=== PATIENT | male | born 1970 | race Caucasian/White ===

== ENCOUNTER 2018-10-04 09:42 | Emergency (ER) | payer OTHER ==
[2018-10-04 09:55] VITALS: RESP 18; TEMP 98.2
[2018-10-04] MEDS ORDERED: SODIUM CHLORIDE 0.9% 1,000 ML IV STA (10:20)
[2018-10-04] MEDS ORDERED: LIDOCAINE 1% INJ 10MG/ML (20 ML MDV) SQ ONE (10:21)
[2018-10-04 10:55] LABS: Basophils # (A) 0.1 k/uL (0-0.2); Basophils % (A) 0 %; Eosinophils # (A) 0.1 k/uL (0-0.7); Eosinophils % (A) 1 %; HCT 43.5 % (39.0-53.0); HGB 14.6 gm/dL (13.0-17.5); Lymphocytes # (A) 1.4 k/uL (1.0-4.8); Lymphocytes % (A) 10 %; MCH 31.4 pg (25.0-35.0); MCHC 33.7 g/dL (31.0-37.0); MCV 93.2 fL (80.0-100.0); Monocytes # (A) 0.5 k/uL (0-1.0); Monocytes % (A) 3 %; Neutrophils # (A) 11.2 k/uL (1.3-7.7); Neutrophils % (A) 84 %; Platelet Count 304 k/uL (150-450); RBC 4.66 m/uL (4.30-5.90); RDW 13.8 % (11.5-15.5); WBC 13.4 k/uL (3.8-10.6)
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
[2018-10-04 11:05] LABS: ALT 26 U/L (21-72); AST 32 U/L (17-59); African American GFR (CKD) >90 (>60 ml/min/1.73 sqM); Albumin 4.2 g/dL (3.5-5.0); Alkaline Phosphatase 57 U/L (38-126); Anion Gap 11 mmol/L; Blood Urea Nitrogen 13 mg/dL (9-20); Calcium 8.5 mg/dL (8.4-10.2); Carbon Dioxide 20 mmol/L (22-30); Chloride 111 mmol/L (98-107); Glucose 105 mg/dL (74-99); Potassium 4.5 mmol/L (3.5-5.1); Sodium 142 mmol/L (137-145); Total Bilirubin 0.3 mg/dL (0.2-1.3); Total Protein 6.9 g/dL (6.3-8.2)
[2018-10-04 11:30] VITALS: BP 145/83; PULSE 87
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
[2018-10-04] MEDS ORDERED: ACETAMINOPHEN TAB 500 MG TAB PO STA (11:39)
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
[2018-10-04] MEDS ORDERED: KETOROLAC 30 MG/ML 1 ML VIAL IVP STA (12:05)
== END 2018-10-04 13:46 | disposition home or self-care (01) ==
LOC: EC 09:42
DX: S02.2XXA Fracture of nasal bones, initial encounter for closed fracture (principal); S01.511A Laceration without foreign body of lip, initial encounter; M54.2 Cervicalgia; R10.9 Unspecified abdominal pain; K08.409 Partial loss of teeth, unspecified cause, unspecified class; F17.200 Nicotine dependence, unspecified, uncomplicated; Y09 Assault by unspecified means; Y93.89 Activity, other specified; Y92.009 Unspecified place in unspecified non-institutional (private) residence as the place of occurrence of the external cause
CPT/HCPCS: 99285; 12011; 96374; 96361; 36415; 80053; 83605; 85025; 71111; 72125; 70486; 70450; 74176; J2001; J1885

== ENCOUNTER 2020-08-28 22:03 | Emergency (ER) | payer OTHER ==
[2020-08-28 22:17] VITALS: TEMP 98
[2020-08-28] MEDS ORDERED: SODIUM CHLORIDE 0.9% 1,000 ML IV STA (22:20)
--- NOTE | 2020-08-28 22:26 | ED ---
Arrhythmia/Palpitations HPI - General Chief Complaint: Arrhythmia/Palpitations Stated Complaint: Fast Heart Beat, Loss vision Time Seen by Provider: 08/28/20 22:19 Source: patient Mode of arrival: wheelchair Limitations: no limitations - Related Data Allergies Allergy/AdvReac Type Severity Reaction Status Date / Time No Known Allergies Allergy Verified 08/28/20 22:17 Review of Systems ROS Statement: Those systems with pertinent positive or pertinent negative responses have been documented in the HPI. ROS Other: All systems not noted in ROS Statement are negative. Past Medical History Past Medical History: No Reported History History of Any Multi-Drug Resistant Organisms: None Reported Past Surgical History: No Surgical Hx Reported Past Psychological History: No Psychological Hx Reported Smoking Status: Current every day smoker Past Alcohol Use History: Occasional Past Drug Use History: Marijuana General Exam Limitations: no limitations Course Vital Signs 08/28/20 22:14 Temperature 98.0 F Pulse Rate 73 Respiratory 20 Rate Blood Pressure 143/82 O2 Sat by Pulse 97 Oximetry EKG Findings - EKG Comments: EKG Findings:: EKG is sinus rhythm 81 UT 170 QRS 90 QTC 448 Medical Decision Making - Lab Data Result diagrams: 08/28/20 22:44 08/28/20 22:44 Lab Results 08/28/20 08/28/20 08/28/20 Range/Units 22:44 22:44 22:44 WBC 9.3 (3.8-10.6) k/uL RBC 4.62 (4.30-5.90) m/uL Hgb 14.9 (13.0-17.5) gm/dL Hct 43.5 (39.0-53.0) % MCV 94.1 (80.0-100.0) fL MCH 32.2 (25.0-35.0) pg MCHC 34.2 (31.0-37.0) g/dL RDW 12.0 (11.5-15.5) % Plt Count 289 (150-450) k/uL MPV 7.2 Neutrophils % 57 % Lymphocytes % 34 % Monocytes % 4 % Eosinophils % 3 % Basophils % 1 % Neutrophils # 5.3 (1.3-7.7) k/uL Lymphocytes # 3.1 (1.0-4.8) k/uL Monocytes # 0.4 (0-1.0) k/uL Eosinophils # 0.3 (0-0.7) k/uL Basophils # 0.1 (0-0.2) k/uL PT (9.0-12.0) sec INR (<1.2) APTT (22.0-30.0) sec Sodium 135 L (137-145) mmol/L Potassium 4.1 (3.5-5.1) mmol/L Chloride 104 (98-107) mmol/L Carbon Dioxide 24 (22-30) mmol/L Anion Gap 7 mmol/L BUN 10 (9-20) mg/dL Creatinine 0.95 (0.66-1.25) mg/dL Est GFR (CKD-EPI)AfAm >90 (>60 ml/min/1.73 sqM) Est GFR (CKD-EPI)NonAf >90 (>60 ml/min/1.73 sqM) Glucose 98 (74-99) mg/dL Plasma Lactic Acid Vinod 1.1 (0.7-2.0) mmol/L Calcium 9.1 (8.4-10.2) mg/dL Phosphorus 4.2 (2.5-4.5) mg/dL Magnesium 1.9 (1.6-2.3) mg/dL Total Bilirubin 0.4 (0.2-1.3) mg/dL AST 36 (17-59) U/L ALT 26 (4-49) U/L Alkaline Phosphatase 67 (38-126) U/L Creatine Kinase 156 (55-170) U/L Troponin I (0.000-0.034) ng/mL NT-Pro-B Natriuret Pep pg/mL Total Protein 7.2 (6.3-8.2) g/dL Albumin 4.2 (3.5-5.0) g/dL TSH 2.300 (0.465-4.680) mIU/L 08/28/20 08/28/20 08/28/20 Range/Units 22:44 22:44 23:12 WBC (3.8-10.6) k/uL RBC (4.30-5.90) m/uL Hgb (13.0-17.5) gm/dL Hct (39.0-53.0) % MCV (80.0-100.0) fL MCH (25.0-35.0) pg MCHC (31.0-37.0) g/dL RDW (11.5-15.5) % Plt Count (150-450) k/uL MPV Neutrophils % % Lymphocytes % % Monocytes % % Eosinophils % % Basophils % % Neutrophils # (1.3-7.7) k/uL Lymphocytes # (1.0-4.8) k/uL Monocytes # (0-1.0) k/uL Eosinophils # (0-0.7) k/uL Basophils # (0-0.2) k/uL PT 10.7 (9.0-12.0) sec INR 1.0 (<1.2) APTT 25.8 (22.0-30.0) sec Sodium (137-145) mmol/L Potassium (3.5-5.1) mmol/L Chloride (98-107) mmol/L Carbon Dioxide (22-30) mmol/L Anion Gap mmol/L BUN (9-20) mg/dL Creatinine (0.66-1.25) mg/dL Est GFR (CKD-EPI)AfAm (>60 ml/min/1.73 sqM) Est GFR (CKD-EPI)NonAf (>60 ml/min/1.73 sqM) Glucose (74-99) mg/dL Plasma Lactic Acid Vinod (0.7-2.0) mmol/L Calcium (8.4-10.2) mg/dL Phosphorus (2.5-4.5) mg/dL Magnesium (1.6-2.3) mg/dL Total Bilirubin (0.2-1.3) mg/dL AST (17-59) U/L ALT (4-49) U/L Alkaline Phosphatase (38-126) U/L Creatine Kinase (55-170) U/L Troponin I <0.012 (0.000-0.034) ng/mL NT-Pro-B Natriuret Pep 165 pg/mL Total Protein (6.3-8.2) g/dL Albumin (3.5-5.0) g/dL TSH (0.465-4.680) mIU/L Disposition Clinical Impression: Ventricular premature beats, Palpitations, Vision changes Disposition: HOME SELF-CARE Condition: Good Instructions (If sedation given, give patient instructions): Heart Palpitations (ED), Heart Palpitations (DC) Is patient prescribed a controlled substance at d/c from ED?: No Referrals: None,Stated [Primary Care Provider] - 1-2 days
[2020-08-28 22:56] LABS: Basophils # (A) 0.1 k/uL (0-0.2); Basophils % (A) 1 %; Eosinophils # (A) 0.3 k/uL (0-0.7); Eosinophils % (A) 3 %; HCT 43.5 % (39.0-53.0); HGB 14.9 gm/dL (13.0-17.5); Lymphocytes # (A) 3.1 k/uL (1.0-4.8); Lymphocytes % (A) 34 %; MCH 32.2 pg (25.0-35.0); MCHC 34.2 g/dL (31.0-37.0); MCV 94.1 fL (80.0-100.0); Mean Platelet Volume 7.2; Monocytes # (A) 0.4 k/uL (0-1.0); Monocytes % (A) 4 %; Neutrophils # (A) 5.3 k/uL (1.3-7.7); Neutrophils % (A) 57 %; Platelet Count 289 k/uL (150-450); RBC 4.62 m/uL (4.30-5.90); WBC 9.3 k/uL (3.8-10.6)
[2020-08-28 23:07] LABS: ALT 26 U/L (4-49); AST 36 U/L (17-59); African American GFR (CKD) >90 (>60 ml/min/1.73 sqM); Albumin 4.2 g/dL (3.5-5.0); Alkaline Phosphatase 67 U/L (38-126); Anion Gap 7 mmol/L; Blood Urea Nitrogen 10 mg/dL (9-20); Calcium 9.1 mg/dL (8.4-10.2); Carbon Dioxide 24 mmol/L (22-30); Chloride 104 mmol/L (98-107); Creatine Kinase 156 U/L (55-170); Glucose 98 mg/dL (74-99); Magnesium 1.9 mg/dL (1.6-2.3); Non-African American GFR(CKD) >90 (>60 ml/min/1.73 sqM); Phosphorus 4.2 mg/dL (2.5-4.5); Potassium 4.1 mmol/L (3.5-5.1); Sodium 135 mmol/L (137-145); Total Bilirubin 0.4 mg/dL (0.2-1.3); Total Protein 7.2 g/dL (6.3-8.2)
[2020-08-28 23:36] LABS: Partial Thromboplastin Time 25.8 sec (22.0-30.0); Prothrombin Time 10.7 sec (9.0-12.0)
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
[2020-08-29 01:16] VITALS: BP 120/75; PULSE 62; RESP 18
== END 2020-08-29 01:16 | disposition home or self-care (01) ==
LOC: EC 22:03
DX: I49.3 Ventricular premature depolarization (principal); H53.9 Unspecified visual disturbance; F17.200 Nicotine dependence, unspecified, uncomplicated
CPT/HCPCS: 70450; 80053; 82550; 83605; 83735; 83880; 84100; 84443; 84484; 85025; 85610; 85730; 93005; 96360; 96361; 99285

== ENCOUNTER 2021-05-09 22:02 | Observation (INO) | payer OTHER ==
[2021-05-09 23:45] LABS: Basophils # (A) 0.1 k/uL (0-0.2); Basophils % (A) 1 %; Eosinophils # (A) 0.2 k/uL (0-0.7); Eosinophils % (A) 2 %; HCT 47.2 % (39.0-53.0); HGB 15.5 gm/dL (13.0-17.5); Lymphocytes # (A) 3.5 k/uL (1.0-4.8); Lymphocytes % (A) 33 %; MCH 32.2 pg (25.0-35.0); MCV 97.6 fL (80.0-100.0); Mean Platelet Volume 7.3; Monocytes # (A) 0.5 k/uL (0-1.0); Monocytes % (A) 5 %; Neutrophils # (A) 6.1 k/uL (1.3-7.7); Neutrophils % (A) 58 %; Platelet Count 309 k/uL (150-450); RBC 4.83 m/uL (4.30-5.90); WBC 10.6 k/uL (3.8-10.6)
--- NOTE | 2021-05-09 23:45 | XR ---
EXAMINATION TYPE: XR chest 2V DATE OF EXAM: 05/09/2021 COMPARISON: 10/04/2018 HISTORY: Chest pain TECHNIQUE: FINDINGS: Heart and mediastinum are normal. Lungs are clear. Diaphragm is normal. There are chest seb ds. Bony thorax is intact. IMPRESSION: Normal chest. No change.
[2021-05-09 23:54] LABS: ALT 23 U/L (4-49); AST 26 U/L (17-59); African American GFR (CKD) >90 (>60 ml/min/1.73 sqM); Alkaline Phosphatase 63 U/L (38-126); Anion Gap 10 mmol/L; Blood Urea Nitrogen 12 mg/dL (9-20); Calcium 9.4 mg/dL (8.4-10.2); Carbon Dioxide 21 mmol/L (22-30); Chloride 107 mmol/L (98-107); Glucose 103 mg/dL (74-99); Magnesium 2.1 mg/dL (1.6-2.3); Non-African American GFR(CKD) 89 (>60 ml/min/1.73 sqM); Potassium 4.4 mmol/L (3.5-5.1); Sodium 138 mmol/L (137-145); Total Bilirubin 0.8 mg/dL (0.2-1.3); Total Protein 7.2 g/dL (6.3-8.2)
[2021-05-10 00:02] LABS: INR 1.1 (<1.2); Partial Thromboplastin Time 26.7 sec (22.0-30.0); Prothrombin Time 11.3 sec (9.0-12.0)
--- NOTE | 2021-05-10 00:41 | ED ---
Chest Pain HPI - General Chief Complaint: Chest Pain Stated Complaint: Chest Pain Time Seen by Provider: 05/09/21 23:13 Source: patient Mode of arrival: ambulatory Limitations: no limitations - History of Present Illness Initial Comments: 50-year-old male with no reported medical history presents emergency department with reported chest pain and palpitations. States that her symptoms started yesterday. Denies any provocative factors. No previous history of cardiac disease. Reports a tightness across his chest which waxes and wanes in nature. Did not take any medications at home for her symptoms. Denies previous history of cardiac or pulmonary disease. Does have a strong family history. He is a daily smoker. Reports to drinking up to a 12 pack of beer, several times per week. Patient does not follow with a primary care doctor. He denies ripping or tearing sensation to his back. No shortness of breath, fevers or cough. No lower extremity swelling. No previous history of cardiac workup. No other alleviating, precipitating or modifying factors - Related Data Home Medications Medication Instructions Recorded Confirmed No Known Home Medications 05/09/21 05/09/21 Allergies Allergy/AdvReac Type Severity Reaction Status Date / Time No Known Allergies Allergy Verified 05/09/21 23:44 Review of Systems ROS Statement: Those systems with pertinent positive or pertinent negative responses have been documented in the HPI. ROS Other: All systems not noted in ROS Statement are negative. EKG Findings - EKG Comments: EKG Findings:: EKG demonstrates sinus rhythm with frequent PACs. Rate of 71. IN interval 181. QRS 92. QTC 400. No acute ST segment elevations or depressions Past Medical History Past Medical History: No Reported History History of Any Multi-Drug Resistant Organisms: None Reported Past Surgical History: No Surgical Hx Reported Past Psychological History: No Psychological Hx Reported Smoking Status: Current every day smoker Past Alcohol Use History: Occasional Past Drug Use History: Marijuana General Exam Limitations: no limitations Course Vital Signs 05/09/21 05/10/21 05/10/21 22:29 00:20 01:43 Temperature 98.1 F Pulse Rate 52 L 69 73 Respiratory 18 20 20 Rate Blood Pressure 129/62 117/59 133/78 O2 Sat by Pulse 97 98 97 Oximetry Chest Pain MDM - MDM Upon arrival patient was placed into room 28. Thorough history and physical exam was performed. IV access established liver traces are conducted. Old EKG was performed which demonstrates frequent PVCs, bigeminy rhythm. Old EKG to compare to. Patient acutely symptomatic at this time. First troponin is negative however did recommend admission for cardiac monitoring and cardiology consultation patient did agree to. Spoke with Dr. Gutierrez who agreed to admit the patient. Patient admitted in stable condition Disposition Clinical Impression: Chest pain Disposition: ADMITTED IP TO THIS HOSP Condition: Stable Is patient prescribed a controlled substance at d/c from ED?: No Decision to Admit Reason: Admit from EC Decision Date: 05/10/21 Decision Time: 01:17
[2021-05-10] MEDS ORDERED: NALOXONE 0.4 MG/ML 1 ML VIAL IV PRN (01:18)
--- NOTE | 2021-05-10 05:37 | P.HPIM ---
History of Present Illness H&P Date: 05/10/21 Chief Complaint: palpitations , chest tightness 50 year old male with no significant past medical history He presented today for palpitations, and off/on chest tightness. he felt having irregular heart beats for two days now, however denies affecting his activity level. he works physical job, and denies any dyspnea or chest pain limiting his activity. he believes he is in good health, however, he does not see a doctor. he denies any cardiac history . however today , as he was laying down to sleep , he felt sharp chest pain left sided for which he decided that he needs to come in for evaluation , no associated dizziness, shortness of breath , leg edema, profuse sweating or palpitations. he felt little nausea without vomiting. otherwise , denies any recent travel, history of blood clots, denies taking any OTC meds except for tylenol , he is not on any meds. he denies drugs , except for occasional marijuana, he denies regular heavy alcohol consumption. he does admit to heavy smoking initial workup in the ED was unremarkable EKG showed frequent PVCs in bigeminy pattern Review of Systems Pertinent positives as noted in HPI. All other systems were reviewed and are negative Past Medical History Past Medical History: No Reported History History of Any Multi-Drug Resistant Organisms: None Reported Past Surgical History: No Surgical Hx Reported Past Psychological History: No Psychological Hx Reported Smoking Status: Current every day smoker Past Alcohol Use History: Occasional Past Drug Use History: Marijuana - Past Family History family Family Medical History: Coronary Artery Disease (CAD) Medications and Allergies Home Medications Medication Instructions Recorded Confirmed Type No Known Home Medications 05/09/21 05/09/21 History Allergies Allergy/AdvReac Type Severity Reaction Status Date / Time No Known Allergies Allergy Verified 05/09/21 23:44 Physical Exam Vitals: Vital Signs Temp Pulse Resp BP Pulse Ox 05/10/21 01:43 73 20 133/78 97 05/10/21 00:20 69 20 117/59 98 05/09/21 22:29 98.1 F 52 L 18 129/62 97 Intake and Output 05/09/21 05/09/21 05/10/21 14:59 22:59 06:59 Other: Weight 95.254 kg Constitutional: No acute distress, conversant, pleasant Eyes: Anicteric sclerae, moist conjunctiva, Pupils equal round reactive to light ENMT: NC/AT Oropharynx clear, no erythema, or exudates Neck: Supple, FROM, no masses, or JVD No carotid bruits No thyromegaly Lungs: Clear to auscultation Clear to percussion Normal respiratory effort, no accessory muscle use Cardiovascular: Heart irregular in rate and rhythm, No murmurs, gallops, or rubs No peripheral edema Abdominal: Soft Nontender, no guarding, rebound or rigidity Abdomen moving with respiration Normoactive bowel sounds No hepatomegaly, No splenomegaly No palpable mass No abdominal wall hernia noted Skin: Normal temperature, tone, texture, turgor No induration No subcutaneous nodules No rash, lesions No ulcers Extremities: No digital cyanosis No clubbing Pedal pulses intact and symmetrical Radial pulses intact and symmetrical No calf tenderness Psychiatric: Alert and oriented to person, place and time Appropriate affect fair judgement Neuro Muscles Strength 5/5 in all 4 extremities Sensation to light touch grossly present throughout Cranial nerves II-XII grossly intact No focal sensory deficits Lymphatics: no palpable cervical or supraclavicular , or inguinal lymph nodes Results CBC & Chem 7: 05/09/21 23:38 05/09/21 23:38 Labs: Abnormal Lab Results - Last 24 Hours (Table) 05/09/21 Range/Units 23:38 Carbon Dioxide 21 L (22-30) mmol/L Glucose 103 H (74-99) mg/dL Assessment and Plan Assessment: frequent PVCs in bigeminy pattern Chest pain plan cardiac workup EKG reviewed no acute ST changes, showing bigeminy pattern frequent PVCs electrolytes unremarkable start ASA, and low dose beta gage echo in AM cardiology consult cardiac cath lab radiology technologist follow up lipid panel , and A1c for risk stratification IVF hydration with normal saline DVT PPX heparin sc tid full code anticipated length of stay < 2 midnights
[2021-05-10] MEDS ORDERED: LORazepam 2 MG/ML INJ IV PRN ×3 (05:38)
[2021-05-10] MEDS ORDERED: ASPIRIN 325 MG TAB PO SCH (09:00)
[2021-05-10] MEDS: ASPIRIN 81 MG PO SCH (09:05)
[2021-05-10] MEDS: HEPARIN SODIUM,PORCINE/PF 5,000 UNIT/0.5 ML SYRINGE SQ SCH ×3 (09:06→23:44)
[2021-05-10] MEDS: METOPROLOL SUCCINATE (ER) 25 MG TAB.ER.24H PO SCH (09:06)
--- NOTE | 2021-05-10 10:02 | P.CRDCN ---
History of Present Illness Consult date: 05/10/21 History of present illness: HISTORY OF PRESENT ILLNESS: This is a 50-year-old male with a past medical history significant for nicotine dependence and frequent alcohol use. 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 We have been asked to see the patient in consultation for chest pain. Patient examined at the bedside. Patient states he has been having palpitations for the past couple days. Patient denies any dizziness or lightheadedness. He reports some nausea but no vomiting. No syncopal episodes at home. The patient denies having any previous cardiac workup. He does report he is a current smoker and smokes about a half a pack per day. He also reports he drinks beer 1-2 times a week and drinks 6-12 beers on each occasion. Patient denies any family history of premature coronary artery disease. However he states his dad recently from pneumonia and what sounds to be cardiac arrest. The patient was started on metoprolol 12.5 mg daily per internal medicine. The patient denies having any chest pain or pressure. EKG reveals sinus mechanism with bigeminy Chest xray negative for acute process Laboratory data: WBC 10.6. Hemoglobin 15.5. Platelet count 309. Sodium 138. Potassium 4.4. BUN 12. Creatinine 0.99. Magnesium 2.1. Troponin negative 3. Current home cardiac medications include none REVIEW OF SYSTEMS: At the time of my exam: CONSTITUTIONAL: Denies fever or chills. HEENT: Denies blurred vision, vision changes, or eye pain. Denies hemoptysis CARDIOVASCULAR: Denies chest pain. Denies orthopnea. Denies PND. Denies palpitations RESPIRATORY: Denies shortness of breath. GASTROINTESTINAL: Denies abdominal pain. Denies nausea or vomiting. HEMATOLOGIC: Denies bleeding disorders. GENITOURINARY: Denies any blood in urine. SKIN: Denies pruitis. Denies rash. PHYSICAL EXAM: VITAL SIGNS: Reviewed. GENERAL: Well-developed in no acute distress. HEENT: Head is normocephalic. Pupils are equal, round. Sclerae anicteric. Mucous membranes of the mouth are moist. Neck supple. No JVD or thyromegaly LUNGS: Respirations even and unlabored. Lungs essentially clear to auscultation bilaterally. HEART: Irregular rate and rhythm. S1 and S2 heard. ABDOMEN: Soft. Nondistended. Nontender. EXTREMITIES: Normal range of motion. No clubbing or cyanosis. Peripheral pulses intact. No lower extremity edema NEUROLOGIC: Awake and alert. Oriented x 3. ASSESSMENT: Chest pain, rule out, patient denies chest pain Palpitations Bigeminy and PVCs Nicotine dependence Frequent alcohol use PLAN: An acute coronary event has been ruled out Continue metoprolol Smoking cessation recommended Recommend abstinence from alcohol Obtain 2-D echo to assess cardiac structure and function and rule out alcohol induced cardiomyopathy If echocardiogram does not reveal any significant abnormalities, the patient may be discharged home today from a cardiac standpoint Nurse practitioner note has been reviewed by physician. Signing provider agrees with the documented findings, assessment, and plan of care. Past Medical History Past Medical History: No Reported History History of Any Multi-Drug Resistant Organisms: None Reported Past Surgical History: No Surgical Hx Reported Past Psychological History: No Psychological Hx Reported Smoking Status: Current every day smoker Past Alcohol Use History: Occasional Past Drug Use History: Marijuana - Past Family History family Family Medical History: Coronary Artery Disease (CAD) Medications and Allergies Home Medications Medication Instructions Recorded Confirmed Type No Known Home Medications 05/09/21 05/09/21 History Allergies Allergy/AdvReac Type Severity Reaction Status Date / Time No Known Allergies Allergy Verified 05/09/21 23:44 Physical Exam Vitals: Vital Signs Temp Pulse Resp BP Pulse Ox 05/10/21 06:30 57 L 15 116/77 96 05/10/21 01:43 73 20 133/78 97 05/10/21 00:20 69 20 117/59 98 05/09/21 22:29 98.1 F 52 L 18 129/62 97 Intake and Output 05/09/21 05/10/21 05/10/21 22:59 06:59 14:59 Other: Weight 95.254 kg Results 05/09/21 23:38 05/09/21 23:38 Cardiac Enzymes 05/09/21 05/09/21 05/10/21 Range/Units 23:38 23:38 03:44 AST 26 (17-59) U/L Troponin I <0.012 <0.012 (0.000-0.034) ng/mL 05/10/21 Range/Units 06:20 AST (17-59) U/L Troponin I <0.012 (0.000-0.034) ng/mL Coagulation 05/09/21 Range/Units 23:38 PT 11.3 (9.0-12.0) sec APTT 26.7 (22.0-30.0) sec CBC 05/09/21 Range/Units 23:38 WBC 10.6 (3.8-10.6) k/uL RBC 4.83 (4.30-5.90) m/uL Hgb 15.5 (13.0-17.5) gm/dL Hct 47.2 (39.0-53.0) % Plt Count 309 (150-450) k/uL Comprehensive Metabolic Panel 05/09/21 Range/Units 23:38 Sodium 138 (137-145) mmol/L Potassium 4.4 (3.5-5.1) mmol/L Chloride 107 (98-107) mmol/L Carbon Dioxide 21 L (22-30) mmol/L BUN 12 (9-20) mg/dL Creatinine 0.99 (0.66-1.25) mg/dL Glucose 103 H (74-99) mg/dL Calcium 9.4 (8.4-10.2) mg/dL AST 26 (17-59) U/L ALT 23 (4-49) U/L Alkaline Phosphatase 63 (38-126) U/L Total Protein 7.2 (6.3-8.2) g/dL Albumin 4.0 (3.5-5.0) g/dL Current Medications Generic Name Dose Route Start Last Admin Trade Name Freq PRN Reason Stop Dose Admin Aspirin 325 mg 05/10/21 09:00 Aspirin 325 Mg Tab PO DAILY [facility] Heparin Sodium (Porcine) 5,000 unit 05/10/21 08:00 Heparin Sodium,Porcine/Pf 5,000 Unit/0.5 Ml Syringe SQ Q8HR SHERIE Sodium Chloride 1,000 mls @ 130 mls/hr 05/10/21 05:30 Saline 0.9% IV .[id number] SHERIE Lorazepam 1 mg 05/10/21 05:38 Lorazepam 2 Mg/Ml Inj IV Q2HR PRN CIWA 8 or 9 Lorazepam 1 mg 05/10/21 05:38 Lorazepam 2 Mg/Ml Inj IV Q1HR PRN CIWA 10 to 15 Lorazepam 2 mg 05/10/21 05:38 Lorazepam 2 Mg/Ml Inj IV 05/12/21 05:38 Q10M PRN CIWA 16 or higher Metoprolol Succinate 12.5 mg 05/10/21 09:00 Metoprolol Succinate (Er) 25 Mg Tab.Er.24h PO DAILY SHERIE Naloxone HCl 0.2 mg 05/10/21 01:18 Naloxone 0.4 Mg/Ml 1 Ml Vial IV Q2M PRN Opioid Reversal Thiamine HCl 100 mg 05/10/21 17:30 Thiamine 100 Mg Tab PO BID-W/MEALS SHERIE Intake and Output 05/09/21 05/10/21 05/10/21 22:59 06:59 14:59 Other: Weight 95.254 kg 05/09/21 23:38 05/09/21 23:38
[2021-05-10 10:18] LABS: Chol/HDL Ratio 4.96 Ratio; LDL Cholesterol,Calculated 119.7 mg/dL (0.0-131.0)
--- NOTE | 2021-05-10 12:00 | ECHOF ---
Referral Reason:bigeminy MEASUREMENTS -------- HEIGHT: 180.3 cm WEIGHT: 95.3 kg BP: RVIDd: 2.8 cm (< 3.3) IVSd: 1.1 cm (0.6 - 1.1) LVIDd: 5.3 cm (3.9 - 5.3) LVPWd: 1.1 cm (0.6 - 1.1) IVSs: 1.4 cm LVIDs: 3.7 cm LVPWs: 1.2 cm Ao Diam: 3.4 cm (2.0 - 3.7) AV Cusp: 1.6 cm (1.5 - 2.6) LA Diam: 3.2 cm (2.7 - 3.8) MV EXCURSION: 27.072 mm (> 18.000) MV EF SLOPE: 163 mm/s (70 - 150) EPSS: 1.5 cm MV E Negro: 0.66 m/s MV DecT: 381 ms MV A Negro: 0.68 m/s MV E/A Ratio: 0.96 RAP: 5.00 mmHg RVSP: 8.15 mmHg FINDINGS -------- Sinus rhythm with extra systolic beats. This was a technically difficult study with suboptimal views. The left ventricular size is normal. There is mild concentric left ventricular hypertrophy. Overa ll left ventricular systolic function is normal with, an EF between 55 - 60 %. The right ventricle is normal in size. The left atrial size is normal. The right atrial size is normal. xx ml of Lumason was utilized for enhancement of images. The aortic valve is trileaflet and appears structurally normal. The mitral valve is normal. There is trace mitral regurgitation. The tricuspid valve appears structurally normal. Trace tricuspid regurgitation present. Right owen tricular systolic pressure is normal at < 35 mmHg. There is no pulmonic regurgitation present. The aortic root size is normal. IVC Not well visulized. CONCLUSIONS -------- 1. Sinus rhythm with extra systolic beats. 2. The left ventricular size is normal. 3. There is mild concentric left ventricular hypertrophy. 4. Overall left ventricular systolic function is normal with, an EF between 55 - 60 %. 5. There is trace mitral regurgitation. 6. Trace tricuspid regurgitation present. CONTINUOUS ABSORPTION PROCESS OPERATOR: Ayala Jaffe RDCS
[2021-05-10] MEDS: SODIUM CHLORIDE 0.9% 1,000 ML IV SCH ×3 (12:51→23:45)
[2021-05-10] MEDS: THIAMINE 100 MG TAB PO SCH (15:53)
[2021-05-11 02:43] VITALS: RESP 18
[2021-05-11] MEDS: SODIUM CHLORIDE 0.9% 1,000 ML IV SCH (05:23)
[2021-05-11] MEDS: HEPARIN SODIUM,PORCINE/PF 5,000 UNIT/0.5 ML SYRINGE SQ SCH (08:35)
[2021-05-11] MEDS: METOPROLOL SUCCINATE (ER) 25 MG TAB.ER.24H PO SCH (08:36)
[2021-05-11] MEDS: ASPIRIN 81 MG PO SCH (08:36)
[2021-05-11] MEDS: THIAMINE 100 MG TAB PO SCH (08:36)
[2021-05-11 08:40] VITALS: BP 109/56; PULSE 62; TEMP 97.9
[2021-05-11 10:15] LABS: Basophils # (A) 0.05 X 10*3/uL (0.00-0.10); Basophils % (A) 0.7 %; Eosinophils % (A) 2.7 %; HCT 46.9 % (39.6-50.0); HGB 15.4 g/dL (13.0-17.0); Immature Grans, Automated 0.3 %; Lymphocytes # (A) 2.95 X 10*3/uL (0.90-5.00); Lymphocytes % (A) 39.9 %; MCH 31.4 pg (27.0-32.0); MCHC 32.8 g/dL (32.0-37.0); MCV 95.7 fL (80.0-97.0); Mean Platelet Volume 9.6 fL (9.5-12.2); Monocytes # (A) 0.44 X 10*3/uL (0.20-1.00); NRBC Per 100 WBC 0 /100 WBCS (0.0-0.0); Neutrophils # (A) 3.73 X 10*3/uL (1.80-7.70); Neutrophils % (A) 50.4 %; Platelet Count 273 X 10*3/uL (140-440); RDW 11.9 % (11.5-14.5); WBC 7.39 X 10*3/uL (4.50-10.00)
[2021-05-11 10:23] LABS: African American GFR (CKD) 106.9 (60.0-200.0); Anion Gap 12.5 mmol/L (10.00-18.00); BUN/Creat Ratio 16.84 Ratio (12.00-20.00); Blood Urea Nitrogen 16.2 mg/dL (9.0-27.0); Calcium 9.1 mg/dL (8.7-10.3); Carbon Dioxide 20.8 mmol/L (20.0-27.5); Non-African American GFR(CKD) 92.2 (60.0-200.0); Potassium 4.4 mmol/L (3.5-5.5)
--- NOTE | 2021-05-11 11:49 | P.DS ---
Providers Date of admission: 05/10/21 01:18 Expected date of discharge: 05/11/21 Attending physician: Liana Gutierrez MD Primary care physician: Stated None Hospital Course: 50 year old male with no significant past medical history He presented today for palpitations, and off/on chest tightness. he felt having irregular heart beats for two days now, however denies affecting his activity level. he works physical job, and denies any dyspnea or chest pain limiting his activity. he believes he is in good health, however, he does not see a doctor. he denies any cardiac history . however today , as he was laying down to sleep , he felt sharp chest pain left sided for which he decided that he needs to come in for evaluation , no associated dizziness, shortness of breath , leg edema, profuse sweating or palpitations. he felt little nausea without vomiting. otherwise , denies any recent travel, history of blood clots, denies taking any OTC meds except for tylenol , he is not on any meds. he denies drugs , except for occasional marijuana, he denies regular heavy alcohol consumption. he does admit to heavy smoking initial workup in the ED was unremarkable EKG showed frequent PVCs in bigeminy pattern Patient was examined about serotonin accompanying any chest pain, shortness of breath or palpitations. Echocardiogram has been reviewed by cardiology and recommended outpatient follow-up and stable to be discharged from their perspective. Vital signs are stable seeps CPNP perfumed negative. Patient has been educated regarding alcohol and tobacco/marijuana cessation. Is also follow-up with his primary care doctor and return to the emergency department if his chest pain or palpitations persist or worsen. Plan - Discharge Summary Discharge Rx Participant: Yes New Discharge Prescriptions: New Aspirin [Adult Low Dose Aspirin EC] 81 mg PO DAILY 30 Days tab Metoprolol Succinate (ER) [Toprol XL] 12.5 mg PO DAILY 30 Days Discharge Medication List Aspirin [Adult Low Dose Aspirin EC] 81 mg PO DAILY 30 Days tab 05/11/21 [Rx] Metoprolol Succinate (ER) [Toprol XL] 12.5 mg PO DAILY 30 Days 05/11/21 [Rx] Follow up Appointment(s)/Referral(s): Josef Macias MD [STAFF PHYSICIAN] - 1 Week None,Stated [Primary Care Provider] - 1-2 days Discharge Disposition: HOME SELF-CARE
== END 2021-05-11 13:23 | disposition home or self-care (01) ==
LOC: EC 22:02 → 6NMEDSUR 05-10 01:18
PROVIDERS: ADMIT Internal Medicine; ATTEND Internal Medicine
DX: R07.89 Other chest pain (principal); R00.2 Palpitations; R11.0 Nausea; I49.3 Ventricular premature depolarization; R00.8 Other abnormalities of heart beat; F17.210 Nicotine dependence, cigarettes, uncomplicated; Z20.822 Contact with and (suspected) exposure to COVID-19; Z71.89 Other specified counseling; Z71.6 Tobacco abuse counseling; Z82.49 Family history of ischemic heart disease and other diseases of the circulatory system
CPT/HCPCS: 96372 ×2; 99285; 36415; 93005; 80061; 80053; 80048; 84443; 83735; 84484 ×2; 85025 ×2; 85610; 85730; 83036; 87635; 71046; G0378 ×2; C8929; Q9950; J1644 ×2; 93306